=== PATIENT | female | born 1995 | race Caucasian/White ===

== ENCOUNTER 2024-05-20 13:20 | Emergency (ER) | payer OTHER ==
--- NOTE | 2024-05-20 14:22 | ED ---
Dizziness HPI - General Source: patient, RN notes reviewed Mode of arrival: EMS Limitations: no limitations <Mehrdad Johnston - Last Filed: 05/20/24 14:21> <Nicolle Walker - Last Filed: 05/21/24 10:03> - General Chief Complaint: Dizziness Stated Complaint: syncope Time Seen by Provider: 05/20/24 13:39 - History of Present Illness Initial Comments: Quick note 28-year-old female presents emergency department with chief complaint of lightheadedness. Patient states has not been feeling well with URI symptoms her main hospital states she went to urgent care because these symptoms and was getting get checked but had a syncopal episode there. She states that she commonly passes out which is not unusual for her. She states she also has had some recent medication changes which may be a factor. She denies any chest pain or palpitations currently she states she just feels under the weather. (Mehrdad Johnston) Is a 28-year-old female history of anxiety presenting to the emergency department via EMS from urgent care for complaint of lightheadedness. Patient states that over the past 2 days she has been experiencing a intermittent headache, sore throat, runny nose went to urgent care to be evaluated since her sister was tested for strep throat that came back positive. Patient states that while she was there she had a near syncopal episode where she states that she felt lightheaded and got "hot "patient did not pass out at this time. Patient that she has recently increased her dosage of Zoloft and is concerned that this may have caused some of her symptoms. Currently she is denying chest pain, heart palpitations, dizziness, lightheadedness. Endorses mild headache. Patient states that these episodes of passing out occur frequently due to her anxiety. (Nicolle Walker) - Related Data Allergies Allergy/AdvReac Type Severity Reaction Status Date / Time No Known Allergies Allergy Verified 05/20/24 13:26 Review of Systems ROS Other: All systems not noted in ROS Statement are negative. <Mehrdad Johnston - Last Filed: 05/20/24 14:21> ROS Other: All systems not noted in ROS Statement are negative. <Nicolle Walker - Last Filed: 05/21/24 10:03> ROS Statement: Those systems with pertinent positive or pertinent negative responses have been documented in the HPI. Past Medical History Past Medical History: No Reported History History of Any Multi-Drug Resistant Organisms: None Reported Past Surgical History: No Surgical Hx Reported Past Psychological History: ADD/ADHD, Anxiety Smoking Status: Never smoker Past Alcohol Use History: None Reported Past Drug Use History: None Reported <Mehrdad Johnston - Last Filed: 05/20/24 14:21> General Exam Limitations: no limitations <Mehrdad Johnston - Last Filed: 05/20/24 14:21> General appearance: alert, in no apparent distress Eye exam: Present: normal appearance, PERRL, EOMI. Absent: scleral icterus, conjunctival injection, periorbital swelling ENT exam: Present: normal exam, mucous membranes moist Neck exam: Present: normal inspection. Absent: tenderness, meningismus, lymphadenopathy Respiratory exam: Present: normal lung sounds bilaterally. Absent: respiratory distress, wheezes, rales, rhonchi, stridor Cardiovascular Exam: Present: regular rate, normal rhythm, normal heart sounds. Absent: systolic murmur, diastolic murmur, rubs, gallop, clicks GI/Abdominal exam: Present: soft, normal bowel sounds. Absent: distended, tenderness, guarding, rebound, rigid Extremities exam: Present: normal inspection, full ROM, normal capillary refill. Absent: tenderness, pedal edema, joint swelling, calf tenderness Back exam: Present: normal inspection Neurological exam: Present: alert, oriented X3, CN II-XII intact <Nicolle Walker - Last Filed: 05/21/24 10:03> - General Exam Comments Initial Comments: Visual Physical Exam Vital signs reviewed General: Well-appearing, nontoxic, no acute distress. Head: Normocephalic, atraumatic Eyes: PERRLA, EOMI ENT: Airway patent Chest: Nonlabored breathing Skin: No visual rash, normal skin tone Neuro: Alert and oriented 3 Musculoskeletal: No gross abnormalities (Mehrdad Johnston) Course Vital Signs 05/20/24 05/20/24 05/20/24 13:23 15:57 16:12 Temperature 99.2 F 98.6 F Pulse Rate 76 81 80 Respiratory 16 18 18 Rate Blood Pressure 90/62 102/58 106/60 O2 Sat by Pulse 97 99 99 Oximetry Medical Decision Making <Mehrdad Johnston - Last Filed: 05/20/24 14:21> <Nicolle Walker - Last Filed: 05/21/24 10:03> - Medical Decision Making I completed the quick note portion of this chart signed Mehrdad Johnston PA-C (Mehrdad Johnston) Was pt. sent in by a medical professional or institution ([facility], [facility], urgent care, hospital, or shelter...) When possible be specific @ -No Did you speak to anyone other than the patient for history (EMS, parent, family, police, friend...)? What history was obtained from this source @ -No Did you review nursing and triage notes (agree or disagree)? Why? @ -I reviewed and agree with nursing and triage notes Were old charts reviewed (outside hosp., previous admission, EMS record, old EKG, old radiological studies, urgent care reports/EKG's, shelter records)? Report findings @ -No old charts were reviewed Differential Diagnosis (chest pain, altered mental status, abdominal pain women, abdominal pain men, vaginal bleeding, weakness, fever, dyspnea, syncope, headache, dizziness, GI bleed, back pain, seizure, CVA, palpatations, mental health, musculoskeletal)? @ -Differential Syncope: Valvular disease, hypertrophic cardiomyopathy, pulmonary embolism, tamponade, tachycardia, bradycardia, RI, hypovolemia, hemorrhage, dissection, anemia, intracranial hemorrhage, seizure, hypoglycemia, carbon monoxide poisoning, this is not meant to be an all-inclusive list. EKG interpreted by me (3pts min.). @ -completed at 1435 sinus rhythm with a ventricular of 86, ME interval 129, QRS 72, QTc 390. X-rays interpreted by me (1pt min.). @ -None done CT interpreted by me (1pt min.). @ -None done U/S interpreted by me (1pt. min.). @ -None done What testing was considered but not performed or refused? (CT, X-rays, U/S, labs)? Why? @ -None What meds were considered but not given or refused? Why? @ -None Did you discuss the management of the patient with other professionals (professionals i.e. , [facility], [employer], lab, RT, psych nurse, neonatal social worker, sea captain, teacher, employee service officer, showcase maker)? Give summary @ -No Was smoking cessation discussed for >3mins.? @ -No Was critical care preformed (if so, how long)? @ -No Were there social determinants of health that impacted care today? How? (Home lessness, low income, unemployed, alcoholism, drug addiction, transportation, low edu. Level, literacy, decrease access to med. care, fpc, rehab)? @ -No Was there de-escalation of care discussed even if they declined (Discuss DNR or withdrawal of care, Hospice)? DNR status @ -No What co-morbidities impacted this encounter? (DM, HTN, Smoking, COPD, CAD, Cancer, CVA, ARF, Chemo, Hep., AIDS, mental health diagnosis, sleep apnea, morbid obesity)? @ -None Was patient admitted / discharged? Hospital course, mention meds given and route, prescriptions, significant lab abnormalities, going to OR and other pertinent info. @ -Discharge. 28-year-old female with dizziness, sore throat, headache. Patient was originally bed the emerged part waiting room as a quick note where studies were ordered including Cepheid and throat. On my evaluation the patient adjusting up with no signs acute distress. Discussion states that her headache is markedly improved after being in the emergency department prior to medication administration. Vitals are stable. Physical examination with no acute findings. EKG sinus rhythm. Discussed with patient at bedside that symptoms likely secondary to viral infection at this time as she has only been exhibiting symptoms for approximately 2 to 3 days. Recommend that she continue supportive treatment at home and return if symptoms worsen or do not improve. discussed with Dr. Rapp Undiagnosed new problem with uncertain prognosis? @ -No Drug Therapy requiring intensive monitoring for toxicity (Heparin, Nitro, Insulin, Cardizem)? @ -No Were any procedures done? @ -No Diagnosis/symptom? @ -dizziness, near syncope, viral URI Acute, or Chronic, or Acute on Chronic? @ -acute Uncomplicated (without systemic symptoms) or Complicated (systemic symptoms)? @ -uncomplicated Side effects of treatment? @ -No Exacerbation, Progression, or Severe Exacerbation? @ -No Poses a threat to life or bodily function? How? (Chest pain, USA, RI, pneumonia, PE, COPD, DKA, ARF, appy, cholecystitis, CVA, Diverticulitis, Homicidal, Suicidal, threat to staff... and all critical care pts) @ -No (Nicolle Walker) - Lab Data Lab Results 11/18/24 11/18/24 Range/Units 14:27 14:27 Influenza Type A (PCR) Not Detected (Not Detectd) Influenza Type B (PCR) Not Detected (Not Detectd) RSV (PCR) Not Detected (Not Detectd) SARS-CoV-2 (PCR) Not Detected (Not Detectd) Group A Strep (PCR) NOT DETECTED (Not Detectd) Disposition <Mehrdad Johnston - Last Filed: 05/20/24 14:21> Is patient prescribed a controlled substance at d/c from ED?: No Time of Disposition: 16:02 <Nicolle Walker - Last Filed: 05/21/24 10:03> Clinical Impression: Pre-syncope, Viral URI Disposition: HOME SELF-CARE Condition: Good Instructions (If sedation given, give patient instructions): Near Syncope (ED) Additional Instructions: Please return to the Emergency Department if symptoms worsen or any other concerns. Referrals: Nonstaff,Physician [REFERRING] - 1-2 days
[2024-05-20] MEDS: IBUPROFEN 800 MG TAB PO STA (16:01)
[2024-05-20 16:11] VITALS: RESP 18
[2024-05-20 16:15] VITALS: BP 106/60; PULSE 80; TEMP 98.6
== END 2024-05-20 16:14 | disposition home or self-care (01) ==
LOC: EC 13:20
DX: J06.9 Acute upper respiratory infection, unspecified (principal); R55 Syncope and collapse; R42 Dizziness and giddiness
CPT/HCPCS: 87636; 87651; 93005; 99285

== ENCOUNTER 2025-01-13 17:32 | Emergency (ER) | payer OTHER ==
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
[2025-01-13] MEDS: ACETAMINOPHEN TAB 325 MG TAB PO STA (18:19)
[2025-01-13] MEDS: LIDOCAINE/EPINEPHR/TETRACAINE 5 ML BOTTLE TOPICAL ONE (18:22)
[2025-01-13] MEDS: DIPH,PERTUS(ACELL)TETVAC-LF 0.5 ML VIAL IM ONE (18:25)
[2025-01-13 19:15] VITALS: BP 107/70; PULSE 57; RESP 20; TEMP 98
== END 2025-01-13 19:15 | disposition home or self-care (01) ==
LOC: EC 17:32
DX: S01.81XA Laceration without foreign body of other part of head, initial encounter (principal); Z23 Encounter for immunization; V43.52XA Car driver injured in collision with other type car in traffic accident, initial encounter
CPT/HCPCS: 12013; 90471; 90715; 99282